=== PATIENT | female | born 1985 | race Caucasian/White ===

== ENCOUNTER 2017-08-03 11:10 | Emergency (ER) | payer BC ==
[~2017-08-03] VITALS: Ht 157.5 cm; Wt 93.9 kg
[2017-08-03 11:27] VITALS: Ht 157.5 cm; Wt 93.9 kg
[2017-08-03 12:45] LABS: PLATELET COUNT 343 x10^3mcL (130-400)
[2017-08-03 12:47] LABS: BASOPHIL % 0 % (0-2); RED CELL DISTRIBUTION WIDTH 14.7 % (11.5-14.5)
[2017-08-03 12:53] LABS: microscopic required? YES; urine erythrocyte TRACE (NEGATIVE)
[2017-08-03 13:14] LABS: CALCIUM 9.3 mg/dL (8.5-10.1); CARBON DIOXIDE 24.4 mmol/L (21-32); CHLORIDE SERUM 97 mmol/L (98-107); CREATININE SERUM 0.6 mg/dL (0.6-1.0); GFR1 > 60 mL/min; GLUCOSE SERUM 222 mg/dL (74-106); POTASSIUM SERUM 3.5 mmol/L (3.5-5.1); SODIUM SERUM 126 mmol/L (136-145)
[2017-08-03 13:18] LABS: AMPHETAMINE QUAL UR NONE DETECTED (NEG <=1000)
[2017-08-03 13:19] LABS: ALKALINE PHOSPHATASE 76 U/L (46-116); ALT/SGPT 26 U/L (14-59); AMYLASE 81 U/L (25-115); AST/SGOT 19 U/L (15-37); BILIRUBIN TOTAL 0.18 mg/dL (0.20-1.00); LIPASE 229 IU/L (73-393); TOTAL PROTEIN, SERUM 7.2 g/dL (6.4-8.2)
[2017-08-03 13:21] LABS: ALBUMIN 2.8 g/dL (3.4-5.0)
[2017-08-03 15:58] VITALS: BP 132/88
== END 2017-08-03 15:58 | disposition home or self-care (01) ==
LOC: ED 11:10
PROVIDERS: Emergency Medicine
DX: O26.892 Other specified pregnancy related conditions, second trimester (principal); M54.9 Dorsalgia, unspecified; Z3A.18 18 weeks gestation of pregnancy; Z88.1 Allergy status to other antibiotic agents; Z88.0 Allergy status to penicillin
CPT/HCPCS: 36415

== ENCOUNTER 2019-12-14 17:21 | Emergency (ER) | payer MEDICAID ==
[~2019-12-14] VITALS: Ht 152.4 cm; Wt 88.5 kg
[2019-12-14 17:32] VITALS: Ht 152.4 cm; Wt 88.5 kg
[2019-12-14 20:39] VITALS: BP 129/71
== END 2019-12-14 20:40 | disposition home or self-care (01) ==
LOC: ED 17:21
DX: G44.209 Tension-type headache, unspecified, not intractable (principal); E11.9 Type 2 diabetes mellitus without complications; Z87.442 Personal history of urinary calculi; Z88.0 Allergy status to penicillin; Z88.1 Allergy status to other antibiotic agents
CPT/HCPCS: 82962; J0780; J1885; Q0163